=== PATIENT | male | born 1970 | race Caucasian/White ===

== ENCOUNTER 2016-10-14 14:01 | Emergency (ER) | payer OTHER | END 2016-10-14 16:35 | disposition home or self-care (01) | LOC: ER1 14:01 | DX: S40.212A Abrasion of left shoulder, initial encounter (principal); S50.812A Abrasion of left forearm, initial encounter; V29.9XXA Motorcycle rider (driver) (passenger) injured in unspecified traffic accident, initial encounter; F17.210 Nicotine dependence, cigarettes, uncomplicated; Y93.89 Activity, other specified; Y92.410 Unspecified street and highway as the place of occurrence of the external cause; F32.9 Major depressive disorder, single episode, unspecified; Z79.899 Other long term (current) drug therapy | CPT/HCPCS: 72125; 72131; 73030; 73060; 73080; 73110; 99284 ==

== ENCOUNTER → 2021-03-15 | Outpatient (CLI) | payer MEDICARE, OTHER | LOC: EMI 14:41 | DX: H90.3 Sensorineural hearing loss, bilateral (principal) | CPT/HCPCS: 70553; A9577 ==

== ENCOUNTER → 2021-10-04 | Outpatient (CLI) | payer MEDICARE, OTHER ==
[2021-10-04 11:42] LABS: GLUCOSE,CSF 55 mg/dL (50-80); TOTAL PROTEIN,CSF 62 mg/dL (20-45)
[2021-10-04 12:13] LABS: WBC (AUTOMATED 10 10^3 (0-5)
[2021-10-04 12:14] LABS: WBC (AUTOMATED 14 10^3 (0-5)
[2021-10-05 14:13] LABS: CSF IGG INDEX 3.1 (0.0-0.7); CSF/SERUM ALB. INDEX 6 (0-8); IMMUNOGLOBULIN G, QN, SERUM 943 mg/dL (603-1613)
[2021-10-06 16:15] LABS: MYELIN BASIC PROTEIN, CSF 7.3 ng/mL (0.0-4.7)
== END ==
LOC: RAD 07:11 → OR 07:30 → RAD 08:00
PROVIDERS: Psychiatry & Neurology Neurology
DX: G35 Multiple sclerosis (principal)
CPT/HCPCS: 82040; 82784; 82945; 83873; 83916; 84157; 87015; 87070; 87116; 87205; 87210; 89051

== ENCOUNTER → 2022-03-21 | Outpatient (CLI) | payer MEDICARE, OTHER | LOC: EXRD 03-16 10:30 | DX: K74.60 Unspecified cirrhosis of liver (principal); N20.0 Calculus of kidney | CPT/HCPCS: 76705 ==